=== PATIENT | female | born 1945 | race Caucasian/White ===

== ENCOUNTER → 2020-10-27 | Outpatient (CLI) | payer MEDICARE ==
[~2020-10-27] MED LIST: ALDACTONE50 MG PO; AMOXICILLIN 8751 TAB PO; ATIVAN1 MG PO; CRESTOR5 MG PO; EFFIENT10 M1 PO; EXFORGE 5/160 PO; LISINOPRIL20 MG PO; METOPROLOL SUCC50 M1 PO; NORCO 325 MG-51 TA1 PO; PRILOSEC 20MG20 MG PO; VIBRAMYCIN HYC100 MG PO; ZOLOFT25 MG PO
== END ==
LOC: RAD 12:52
DX: K44.9 Diaphragmatic hernia without obstruction or gangrene (principal); K57.30 Diverticulosis of large intestine without perforation or abscess without bleeding; M19.019 Primary osteoarthritis, unspecified shoulder; Z90.710 Acquired absence of both cervix and uterus

== ENCOUNTER → 2021-02-16 | Outpatient (CLI) | payer MEDICARE | LOC: RAD 07:00 | DX: E22.2 Syndrome of inappropriate secretion of antidiuretic hormone (principal) | CPT/HCPCS: A9585; Q9967 ==

== ENCOUNTER → 2021-08-16 | Outpatient (CLI) | payer MEDICARE | LOC: RAD 12:00 | DX: M71.22 Synovial cyst of popliteal space [Baker], left knee (principal) ==

== ENCOUNTER 2022-03-15 13:10 | Outpatient (RCR) | payer MEDICARE | END 2022-04-13 | disposition home or self-care (01) | LOC: CARDREHAB | DX: Z48.812 Encounter for surgical aftercare following surgery on the circulatory system (principal); Z95.1 Presence of aortocoronary bypass graft; Z95.5 Presence of coronary angioplasty implant and graft ==

== ENCOUNTER 2024-01-25 16:01 | Outpatient (RCR) | payer MEDICARE ==
[2024-01-15 13:39] VITALS: BP 156/106
[2024-01-19 13:01] VITALS: BP 167/85
[2024-01-19 13:45] VITALS: BP 165/80
[2024-01-21 14:31] VITALS: BP 137/74
[2024-01-23 15:10] VITALS: BP 181/90
[2024-01-23 15:30] VITALS: BP 163/83
[~2024-01-25] VITALS: Ht 160 cm; Wt 69.1 kg
[~2024-01-25 16:01] MED LIST changes: +AMIODARONE200 MG PO; +AMLODIPINE BES2.5 MG PO; +CELECOXIB100 M1 PO; +DULOXETINE60 MG PO; +ELIQUIS2.5 MG PO; +FUROSEMIDE40 MG PO; +Iron Sucrose 20 MG/ML 5 ML VIAL IV ONE; +Iron Sucrose 200 MG in NS 100 ML Over 15 minutes IV ONE; +NS 100 ML IV ONE; +POTASSIUM CHLO10 ME8 PO; +ROSUVASTATIN CA10 MG PO; +TEMAZEPAM30 M1 PO; +TRAMADOL 50 MG TAB PO
[2024-01-25 16:14] VITALS: BP 160/80
== END 2024-01-25 16:55 | disposition home or self-care (01) ==
LOC: AMSURD 16:01
DX: D50.0 Iron deficiency anemia secondary to blood loss (chronic) (principal)
CPT/HCPCS: J1756